=== PATIENT | female | born 1950 | race Caucasian/White ===

== ENCOUNTER 2017-02-08 08:17 | Day surgery (SDC) | payer OTHER ==
[~2017-02-08] VITALS: Ht 152.4 cm; Wt 70.3 kg
[~2017-02-08 08:17] MED LIST: ESOMEPRAZOLE MA40 MG PO; LEVO-T100 MCG PO; ZOCOR20 MG PO
[2017-02-08 09:05] VITALS: BP 124/70
[2017-02-08 13:50] VITALS: BP 119/65
[2017-02-08 14:30] VITALS: BP 123/66
== END 2017-02-08 14:40 | disposition home or self-care (01) ==
LOC: SDC 08:17
PROC: 0HBT0ZZ Excision of Right Breast, Open Approach (ICD-10-PCS; principal; 2017-02-08)
DX: N60.31 Fibrosclerosis of right breast (principal); N60.81 Other benign mammary dysplasias of right breast; E78.5 Hyperlipidemia, unspecified; K21.9 Gastro-esophageal reflux disease without esophagitis; Z80.3 Family history of malignant neoplasm of breast; Z80.0 Family history of malignant neoplasm of digestive organs; Z83.3 Family history of diabetes mellitus; Z82.49 Family history of ischemic heart disease and other diseases of the circulatory system; Z80.7 Family history of other malignant neoplasms of lymphoid, hematopoietic and related tissues; Z82.0 Family history of epilepsy and other diseases of the nervous system
CPT/HCPCS: 88307; C1876; J1885; J3010; S0020